=== PATIENT | male | born 1965 | race Caucasian/White ===

== ENCOUNTER 2022-07-29 10:49 | Day surgery (SDC) | payer MEDICAID ==
[2022-07-27 11:34] LABS: COVID AG,FIA SOURCE NASAL SWAB
[~2022-07-29] VITALS: Ht 177.8 cm; Wt 81.8 kg
[~2022-07-29 10:49] MED LIST: SODIUM CHLORIDE 0.9% 1,000 ML IV ONE; SODIUM CHLORIDE 0.9% 1,000 ML ONE
[2022-07-29] MEDS ORDERED: LIDOCAINE/PF 2% 5 ML VIAL IM ONE (10:50)
== END 2022-07-29 14:45 | disposition home or self-care (01) ==
LOC: SURGERY 10:49
PROVIDERS: ATTEND Internal Medicine Gastroenterology
DX: K57.30 Diverticulosis of large intestine without perforation or abscess without bleeding (principal); K64.8 Other hemorrhoids; K52.89 Other specified noninfective gastroenteritis and colitis; K29.70 Gastritis, unspecified, without bleeding; K20.90 Esophagitis, unspecified without bleeding; Z79.899 Other long term (current) drug therapy; Z98.890 Other specified postprocedural states
CPT/HCPCS: 45380; 43239; 87426; C9803; C1769; J3490; J7030